=== PATIENT | male | born 1960 | race African-American/Black ===

== ENCOUNTER 2023-05-21 19:31 | Emergency (ER) | payer OTHER ==
[2023-05-21] MEDS ORDERED: traMADol HCl 50 MG TAB ONE (19:53)
[2023-05-21 20:12] LABS: #Basophils 0.1 thou/uL (0.0-0.2); #Eosinphils 0.2 thou/uL (0.0-0.7); #Lymphocytes 2.5 thou/uL (1.20-3.40); #Monocytes 0.3 thou/uL (0.11-0.59); #Neutrophils 2.4 thou/uL (1.40-6.50); %Basophils 1.4 % (0.0-1.0); %Eosinophils 3.4 % (0.0-10.0); %Lymphocytes 46.4 % (21.0-51.0); %Neutrophils 43.8 % (42.0-75.0); Hemoglobin 15.9 g/dL (14.0-18.0); Mean Corpuscular HGB CONC 33.8 g/dL (32.0-36.0); Mean Corpuscular Hemoglobin 30.5 pg (27.0-31.0); Mean Corpuscular Volume 90.2 fl (78.0-98.0); Mean Platelet Volume 9.9 fL (7.4-10.4); Platelet Count 266 10x3/uL (130-400); Red Blood Cell (RBC) Count 5.22 mill/uL (4.70-6.10); White Blood Cell (WBC) Count 5.4 10x3/uL (4.8-10.8)
[2023-05-21] MEDS ORDERED: Clindamycin/D5W 900 mg/50 ml Premix Bag ONE (20:20)
[2023-05-21 20:30] LABS: ALT (SGPT) 19 U/L (8-55); AST (SGOT) 18 U/L (5-34); Albumin 4.3 g/dL (3.4-4.8); Alkaline Phosphatase 129 U/L (40-110); Anion Gap 13 mmol/L (10-20); BUN (Urea Nitrogen) 16 mg/dL (8.4-25.7); Bilirubin, Total 0.3 mg/dL (0.2-1.2); Calc. Creatinine Clearance 0 mL/min (70-130); Calcium 9.8 mg/dL (7.8-10.44); Carbon Dioxide 26 mmol/L (23-31); Chloride 99 mmol/L (98-107); Estimated GFR 56; Globulin 3.3 g/dL (2.4-3.5); Potassium 4.5 mmol/L (3.5-5.1); Protein, Total 7.6 g/dL (5.8-8.1); Sodium 133 mmol/L (136-145)
[2023-05-21 20:34] LABS: Glucose 427 mg/dL (80-115)
[2023-05-21] MEDS ORDERED: Sodium Chloride 0.9% 1,000 ML ONE (20:43)
[2023-05-21] MEDS ORDERED: Insulin Regular 300 UNITS/3 ML VIAL ONE (20:51)
[2023-05-21 21:05] LABS: Base Excess-Venous 1.2 mmol/L (-2.0 to 3.0); Bicarbonate (HCO3v) 26.6 mmol/L (22.0-28.0); CO2 Tension (PvCO2) 43.5 mmHg (42.0-51.0); Calcium, Ionized 1.21 mmol/L (1.15-1.33); Chloride 99 mmol/L (98-107); Potassium 4.7 mmol/L (3.5-5.1); Sodium 137 mmol/L (138-145); vO2 Saturation-calc 84.4 % (60.0-85.0)
[2023-05-21 21:29] LABS: Bilirubin Negative (Negative); Blood, Urine Negative (Negative); Clarity Clear (Clear); Glucose, Urine (Dipstick) >=1000 mg/dL (Negative); Ketone, Urine Negative (Negative); Leukocyte Negative (Negative); Nitrite Negative (Negative); Protein, Urine (Dipstick) Negative (Neg-Trace); Specific Gravity, Urine 1.015 (1.005-1.030); Urobilinogen 0.2 mg/dL (Less than 2)
[2023-05-21 21:30] LABS: Bacteria/HPF None Seen HPF (None Seen); CAUTI Indications for Culture Fever or rigors; RBC/HPF None Seen HPF (0-3); Squamous Epithelial None Seen HPF (0-3); Urine Culture Reflex No No; WBC/HPF None Seen HPF (0-3)
[2023-05-21] MEDS ORDERED: Ketorolac Tromethamine 30 MG (1 mL) VIAL ONE (21:50)
== END 2023-05-21 22:45 ==
LOC: NAV ERS 19:31
DX: L03.113 Cellulitis of right upper limb (principal); E11.9 Type 2 diabetes mellitus without complications; E78.5 Hyperlipidemia, unspecified; I10 Essential (primary) hypertension; Z79.899 Other long term (current) drug therapy; Z79.82 Long term (current) use of aspirin; Z79.84 Long term (current) use of oral hypoglycemic drugs
CPT/HCPCS: 36415; 36416; 80053; 81001; 82010; 82330; 82803; 85025; 87070; 87077; 87186; 87205; 96365; 96375; J1815; J1885; J3490; J7050